=== PATIENT | female | born 1935 | race Caucasian/White ===

== ENCOUNTER 2016-06-24 10:01 | Outpatient (CLI) | payer MEDICARE | END 2016-06-24 10:02 | disposition home or self-care (01) | LOC: NC 10:01 | PROVIDERS: ATTEND Legal Medicine | DX: E11.65 Type 2 diabetes mellitus with hyperglycemia (principal); Z71.3 Dietary counseling and surveillance; Z68.29 Body mass index [BMI] 29.0-29.9, adult; I10 Essential (primary) hypertension; E78.5 Hyperlipidemia, unspecified ==

== ENCOUNTER 2016-07-17 11:50 | Outpatient (CLI) | payer MEDICARE | END 2016-07-17 11:51 | disposition home or self-care (01) | LOC: NC 11:50 | PROVIDERS: ATTEND Legal Medicine | DX: E11.65 Type 2 diabetes mellitus with hyperglycemia (principal); Z71.3 Dietary counseling and surveillance; Z68.29 Body mass index [BMI] 29.0-29.9, adult; I10 Essential (primary) hypertension; E78.5 Hyperlipidemia, unspecified ==

== ENCOUNTER 2016-07-29 11:52 | Outpatient (CLI) | payer MEDICARE | END 2016-07-29 11:53 | disposition home or self-care (01) | LOC: NC 11:52 | PROVIDERS: ATTEND Legal Medicine | DX: E11.9 Type 2 diabetes mellitus without complications (principal) ==

== ENCOUNTER 2016-08-21 11:59 | Outpatient (CLI) | payer MEDICARE | END 2016-08-21 12:00 | disposition home or self-care (01) | LOC: NC 11:59 | PROVIDERS: ATTEND Legal Medicine | DX: E11.65 Type 2 diabetes mellitus with hyperglycemia (principal); Z71.3 Dietary counseling and surveillance; Z68.29 Body mass index [BMI] 29.0-29.9, adult; I10 Essential (primary) hypertension; E78.5 Hyperlipidemia, unspecified; R53.83 Other fatigue ==